=== PATIENT | male | born 1995 | race American Indian/Alaskan Native ===

== ENCOUNTER 2022-02-05 19:23 | Emergency (ER) | payer SELFPAY ==
[2022-02-05] MEDS ORDERED: methylPREDNISolone Sod Succinate 125 MG/2 ML INJ IV ONE (19:59)
[2022-02-05] MEDS ORDERED: FAMOTIDINE 20 MG/2 ML INJ IV ONE (19:59)
[2022-02-05] MEDS ORDERED: diphenhydrAMINE 50 MG/ML VIAL IV ONE ×2 (20:00→20:51)
--- NOTE | 2022-02-05 20:00 | Emergency Department Report ---
HPI - General Chief Complaint: Allergic Reaction ED Review of Systems ROS: Stated complaint: CHEST PAIN/ HIVES Other details as noted in HPI Physical Exam - Physical Exam Vital Signs: Vital Signs 02/05/22 19:27 Temperature 98.7 F Pulse Rate 118 H Respiratory 14 Rate Blood Pressure 152/100 O2 Sat by Pulse 95 Oximetry ED Course Vital Signs 02/05/22 19:27 Temperature 98.7 F Pulse Rate 118 H Respiratory 14 Rate Blood Pressure 152/100 O2 Sat by Pulse 95 Oximetry Critical care attestation.: If time is entered above; I have spent that time in minutes in the direct care of this critically ill patient, excluding procedure time. ED Disposition Condition: Stable
[2022-02-05] MEDS ORDERED: METOCLOPRAMIDE 10 MG/2 ML INJ IV ONE (20:51)
[2022-02-05] MEDS ORDERED: ALUM-MAG HYDROXIDE-SIMETHICONE 200-200-20MG/5ML ORAL LIQD 30 ML PO ONE (21:31)
[2022-02-05] MEDS ORDERED: LIDOCAINE VISCOUS 2% 15 ML ORAL LIQD PO ONE (21:31)
[2022-02-05] MEDS ORDERED: SUCRALFATE 1 GM TAB PO ONE (21:32)
--- NOTE | 2022-02-05 21:49 | Emergency Department Report ---
ED Allergic Reaction HPI - General Chief complaint: Allergic Reaction Stated complaint: CHEST PAIN/ HIVES Source: patient Mode of arrival: Ambulatory Limitations: No Limitations - History of Present Illness Initial Comments: Patient is a 26-year-old -Romanian male with a history of chronic GERD who presents to the ED with complaint of acute onset persistent mild epigastric pain with nausea and vomiting, diffuse itchy erythematous maculopapular urticarial rashes for the last 4 hours. Patient states that the symptoms have worsened in the last 2 hours such that with persistent nausea and vomiting and epigastric pain got worse with burning epigastric pain. Patient also states that the itchy erythematous maculopapular rashes have significantly spread all over his body. Patient denies swollen lips or tongue, hoarseness, chest pain or shortness of breath, cough, wheezing, dizziness, syncope, fever, chills, swollen throat or dysphagia, dizziness and syncope. MD Complaint: allergic reaction, hives, other (Nausea and vomiting and mild epigastric pain) -: Sudden, hour(s) (4) Exposure: food Symptoms: rash, itching, nausea, vomiting, abdominal pain (Mild epigastric pain). denies: facial swelling, lip swelling, difficulty swallowing, hoarseness, syncopy, dizziness Severity: moderate Treatment Prior to Arrival: none Previous Allergy History: none - Related Data Previous Rx's Medication Instructions Recorded Last Taken Type Dicyclomine [Bentyl] 20 mg PO Q6H #24 tablet 02/05/22 Unknown Rx Famotidine [Pepcid] 20 mg PO BID #60 tablet 02/05/22 Unknown Rx Ondansetron [Zofran Odt] 4 mg PO Q6HR PRN #20 tab.rapdis 02/05/22 Unknown Rx diphenhydrAMINE [Benadryl CAP] 50 mg PO Q8HR PRN #40 capsule 02/05/22 Unknown Rx methylPREDNISolone [Medrol 4MG 4 mg PO DAILY #21 tab 02/05/22 Unknown Rx DOSEPAK (21 tabs)] Allergies Allergy/AdvReac Type Severity Reaction Status Date / Time No Known Allergies Allergy Verified 02/05/22 19:44 ED Review of Systems ROS: Stated complaint: CHEST PAIN/ HIVES Other details as noted in HPI Constitutional: denies: chills, fever Eyes: denies: eye pain, eye discharge, vision change ENT: denies: ear pain, throat pain Respiratory: denies: cough, shortness of breath, wheezing Cardiovascular: denies: chest pain, palpitations Endocrine: no symptoms reported Gastrointestinal: abdominal pain (Mild epigastric pain), nausea, vomiting. denies: diarrhea Genitourinary: denies: urgency, dysuria Musculoskeletal: denies: back pain, joint swelling, arthralgia Skin: rash (Diffuse itchy mild erythematous urticarial rashes), change in color, pruritus. denies: lesions Neurological: denies: headache, weakness, paresthesias Psychiatric: denies: anxiety, depression Hematological/Lymphatic: denies: easy bleeding, easy bruising ED Past Medical Hx - Past Medical History Previous Medical History?: Yes Hx GERD: Yes - Surgical History Past Surgical History?: No - Medications Home Medications: Home Medications Medication Instructions Recorded Confirmed Last Taken Type Dicyclomine [Bentyl] 20 mg PO Q6H #24 tablet 02/05/22 Unknown Rx Famotidine [Pepcid] 20 mg PO BID #60 tablet 02/05/22 Unknown Rx Ondansetron [Zofran Odt] 4 mg PO Q6HR PRN #20 tab.rapdis 02/05/22 Unknown Rx diphenhydrAMINE [Benadryl CAP] 50 mg PO Q8HR PRN #40 capsule 02/05/22 Unknown Rx methylPREDNISolone [Medrol 4MG 4 mg PO DAILY #21 tab 02/05/22 Unknown Rx DOSEPAK (21 tabs)] ED Physical Exam - General Limitations: No Limitations General appearance: alert, in no apparent distress - Head Head exam: Present: atraumatic, normocephalic, normal inspection - Eye Eye exam: Present: normal appearance, PERRL, EOMI Pupils: Present: normal accommodation - ENT ENT exam: Present: normal exam, normal orophraynx, mucous membranes moist, TM's normal bilaterally, normal external ear exam - Neck Neck exam: Present: normal inspection, full ROM. Absent: tenderness - Respiratory Respiratory exam: Present: normal lung sounds bilaterally. Absent: respiratory distress, wheezes, rhonchi, stridor, chest wall tenderness, accessory muscle use - Cardiovascular Cardiovascular Exam: Present: normal rhythm, tachycardia, normal heart sounds. Absent: systolic murmur, diastolic murmur, rubs, gallop - GI/Abdominal GI/Abdominal exam: Present: soft, normal bowel sounds. Absent: tenderness, guarding, rebound, hyperactive bowel sounds, hypoactive bowel sounds, organomegaly - Extremities Exam Extremities exam: Present: normal inspection, full ROM, normal capillary refill - Back Exam Back exam: Present: normal inspection, full ROM. Absent: tenderness, CVA tenderness (R), CVA tenderness (L), muscle spasm, paraspinal tenderness, vertebral tenderness - Neurological Exam Neurological exam: Present: alert, oriented X3, CN II-XII intact, normal gait, reflexes normal - Psychiatric Psychiatric exam: Present: normal affect, normal mood - Skin Skin exam: Present: warm, dry, intact, rash (Mild erythematous maculopapular urticarial rashes diffusely), erythema, urticaria ED Course Vital Signs 02/05/22 02/05/22 19:27 20:28 Temperature 98.7 F Pulse Rate 118 H Respiratory 14 Rate Blood Pressure 152/100 O2 Sat by Pulse 95 96 Oximetry ED Medical Decision Making - Medical Decision Making This is a 26-year-old -Romanian male with a history of chronic GERD who presents to the ED with complaint of acute onset persistent mild epigastric pain with nausea and vomiting, diffuse itchy erythematous maculopapular urticarial ra shes for the last 4 hours. Patient states that the symptoms have worsened in the last 2 hours such that with persistent nausea and vomiting and epigastric pain got worse with burning epigastric pain. Patient also states that the itchy erythematous maculopapular rashes have significantly spread all over his body. In the ED, patient is alert and oriented x3 and is not in any distress. Patient is however tachycardic and afebrile in triage. Patient was treated for acute allergic reaction with Solu-Medrol 125 mg IV, Benadryl 50 mg IV and Pepcid 20 mg IV. In addition patient also received antiemetics Reglan 10 mg IV and GI cocktail and Carafate 1 g p.o. x1. On reevaluation, patient felt better, the itching and hives improved significantly and nausea and vomiting resolved. Patient was discharged home on medications and advised to follow-up with his primary care physician in 3 to 5 days for reevaluation or return to the ED immediately if symptoms get worse. - Differential Diagnosis Acute allergic reaction; acute urticaria; dehydration; food allergy; GERD Critical care attestation.: If time is entered above; I have spent that time in minutes in the direct care of this critically ill patient, excluding procedure time. ED Disposition Clinical Impression: Acute urticaria, Itching with irritation, Nausea and vomiting in adult GERD (gastroesophageal reflux disease) Qualifiers: Esophagitis presence: esophagitis presence not specified Qualified Code(s): K21.9 - Gastro-esophageal reflux disease without esophagitis Acute allergic reaction Qualifiers: Encounter type: initial encounter Qualified Code(s): T78.40XA - Allergy, unspecified, initial encounter Disposition: HOME / SELF CARE / HOMELESS Is pt being admited?: No Does the pt Need Aspirin: No Condition: Stable Instructions: Allergies, Adult, [id number], Food Choices for Gastroesophageal Reflux Disease, Adult, Heartburn, [id number], Nausea and Vomiting, Adult, [id number], Rash, Adult, Vwnq-bc-[id number], Gastroesophageal Reflux Disease, Adult, [id number] Additional Instructions: Take medication with food, drink plenty of fluids and follow-up with your primary care physician in 3 to 5 days for reevaluation. Return to the ED immediately if symptoms get worse. Prescriptions: diphenhydrAMINE [Benadryl CAP] 50 mg PO Q8HR PRN #40 capsule PRN Reason: Itching Dicyclomine [Bentyl] 20 mg PO Q6H #24 tablet methylPREDNISolone [Medrol 4MG DOSEPAK (21 tabs)] 4 mg PO DAILY #21 tab Famotidine [Pepcid] 20 mg PO BID #60 tablet Ondansetron [Zofran Odt] 4 mg PO Q6HR PRN #20 tab.rapdis PRN Reason: Nausea Referrals: [facility] [Provider Group] - 3-5 Days Time of Disposition: 21:51 Print Language: JAPANESE
[2022-02-05 22:10] VITALS: BP 126/81
--- NOTE | 2022-02-06 09:47 | Electrocardiograph Report ---
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
== END 2022-02-05 22:17 | disposition home or self-care (01) ==
LOC: ED 19:23
DX: L50.9 Urticaria, unspecified (principal); K21.9 Gastro-esophageal reflux disease without esophagitis; Z79.899 Other long term (current) drug therapy
CPT/HCPCS: 93005; 96374; 96375; 96376; 99283; J1200; J2765; J2930; J3490

== ENCOUNTER 2022-03-13 03:06 | Emergency (ER) | payer SELFPAY ==
[2022-03-13] MEDS ORDERED: FAMOTIDINE 20 MG/2 ML INJ IV ONE (03:20)
[2022-03-13] MEDS ORDERED: methylPREDNISolone Sod Succinate 125 MG/2 ML INJ IV ONE (03:20)
[2022-03-13] MEDS ORDERED: diphenhydrAMINE 50 MG/ML VIAL IV ONE (03:20)
--- NOTE | 2022-03-13 03:21 | Event Note ---
Date: 03/13/22 Medical screening examination note: 26-year-old gentleman with history of GERD and urticaria, presenting to the emergency room today with a complaint of urticaria after taking aspirin. He is awake and alert, protecting airway, and he is not stridulous. He is found to have diffuse welts and urticaria. Place patient on cardiac catheterization technician. Start Pepcid, Benadryl, and steroids. Patient does report association between GERD/reflux and urticaria, so we will medicate empirically with Protonix. Detailed history and physical to be performed by oncoming provider Vital Signs 03/13/22 03/13/22 03/13/22 03:11 03:28 03:30 Temperature 98.6 F Pulse Rate 109 H 106 H Respiratory 18 16 15 Rate Blood Pressure 156/99 159/97 Blood Pressure [Right] O2 Sat by Pulse 96 96 95 Oximetry 03/13/22 03/13/22 03/13/22 03:44 03:45 03:54 Temperature 98.6 F Pulse Rate 88 Respiratory 12 16 Rate Blood Pressure Blood Pressure 159/97 128/83 [Right] O2 Sat by Pulse 100 100 Oximetry
[2022-03-13] MEDS ORDERED: PANTOPRAZOLE 40 MG INJ IV ONE (04:02)
[2022-03-13] MEDS ORDERED: ONDANSETRON 4 MG/2 ML INJ IV ONE (04:38)
[2022-03-13] MEDS ORDERED: SUCRALFATE 1 GM/10 ML ORAL LIQD PO ONE (05:38)
[2022-03-13] MEDS ORDERED: ALUM-MAG HYDROXIDE-SIMETHICONE 200-200-20MG/5ML ORAL LIQD 30 ML PO ONE (06:30)
[2022-03-13] MEDS ORDERED: LIDOCAINE VISCOUS 2% 15 ML ORAL LIQD PO ONE (06:30)
--- NOTE | 2022-03-13 06:51 | Emergency Department Report ---
ED Allergic Reaction HPI - General Chief complaint: Allergic Reaction Stated complaint: ALLERGIC REACTION Time Seen by Provider: 03/13/22 06:11 Source: patient, old records reviewed Mode of arrival: Ambulatory Limitations: No Limitations - History of Present Illness Initial Comments: 26-year-old male with history of kidney stones and GERD presents to the hospital complaining of allergic reaction and GERD symptoms. Patient took aspirin approximately 2 AM for headache. Within 20 minutes he began feeling generalized pruritus with associated rash. He complained of mild throat tightness. Patient took Benadryl 50 mg prior to ED arrival. Patient was screened by previous provider and received additional Benadryl, Pepcid, Solu-Medrol, Protonix, and Carafate. Patient reports improvement and resolution of pruritus and rash with persistent reflux symptoms. Patient was also here 1 month ago for acute urticaria with unclear cause, nausea, vomiting, and GERD - Related Data Previous Rx's Medication Instructions Recorded Last Taken Type Dicyclomine [Bentyl] 20 mg PO Q6H #24 tablet 02/05/22 Unknown Rx Ondansetron [Zofran Odt] 4 mg PO Q6HR PRN #20 tab.rapdis 02/05/22 Unknown Rx Esomeprazole Magnesium [Nexium 20 mg PO DAILY #30 tab 03/13/22 Unknown Rx 24Hr] Famotidine [Pepcid] 20 mg PO BID #60 tablet 03/13/22 Unknown Rx Mag Hydrox/Aluminum Hyd/Simeth 20 ml PO QID PRN #1 bottle 03/13/22 Unknown Rx [Maalox Advanced Suspension] diphenhydrAMINE [Benadryl CAP] 50 mg PO Q8HR PRN #40 capsule 03/13/22 Unknown Rx methylPREDNISolone [Medrol 4MG 4 mg PO DAILY #21 tab 03/13/22 Unknown Rx DOSEPAK (21 tabs)] Allergies Allergy/AdvReac Type Severity Reaction Status Date / Time aspirin Allergy Hives Verified 03/13/22 06:50 ED Review of Systems ROS: Stated complaint: ALLERGIC REACTION Other details as noted in HPI Comment: All other systems reviewed and negative ED Past Medical Hx - Past Medical History Previous Medical History?: No Hx GERD: Yes Hx Kidney Stones: Yes - Surgical History Past Surgical History?: Yes Additional Surgical History: SKIN GRAFTS, KIDNEY STONE REMOVAL, BACK SURGERY - Social History Smoking Status: Current Every Day Smoker Substance Use Type: Alcohol, Marijuana - Medications Home Medications: Home Medications Medication Instructions Recorded Confirmed Last Taken Type Dicyclomine [Bentyl] 20 mg PO Q6H #24 tablet 02/05/22 Unknown Rx Ondansetron [Zofran Odt] 4 mg PO Q6HR PRN #20 tab.rapdis 02/05/22 Unknown Rx Esomeprazole Magnesium [Nexium 20 mg PO DAILY #30 tab 03/13/22 Unknown Rx 24Hr] Famotidine [Pepcid] 20 mg PO BID #60 tablet 03/13/22 Unknown Rx Mag Hydrox/Aluminum Hyd/Simeth 20 ml PO QID PRN #1 bottle 03/13/22 Unknown Rx [Maalox Advanced Suspension] diphenhydrAMINE [Benadryl CAP] 50 mg PO Q8HR PRN #40 capsule 03/13/22 Unknown Rx methylPREDNISolone [Medrol 4MG 4 mg PO DAILY #21 tab 03/13/22 Unknown Rx DOSEPAK (21 tabs)] ED Physical Exam - General Limitations: No Limitations - Other Other exam information: General: No acute distress Head: Atraumatic Eyes: normal appearance ENT: Moist mucous membranes, no posterior airway swelling, stridor, no respiratory Neck: Normal appearance, no midline tenderness Chest: Clear to auscultation bilaterally CV: Regular rate and rhythm Abdomen: Soft, normal bowel sounds, nontender, nondistended, no rebound or guarding Back: Normal inspection Extremity: Normal inspection, full range of motion Neuro: Alert O x 3, no facial asymmetry, speech clear, no gross motor sensory deficit Psych: Appropriate behavior Skin: No rash ED Course Vital Signs 03/13/22 03/13/22 03/13/22 03:11 03:28 03:30 Temperature 98.6 F Pulse Rate 109 H 106 H Respiratory 18 16 15 Rate Blood Pressure 156/99 159/97 Blood Pressure [Right] O2 Sat by Pulse 96 96 95 Oximetry 03/13/22 03/13/22 03/13/22 03:44 03:45 03:46 Temperature 98.6 F Pulse Rate 88 97 H Respiratory 12 16 18 Rate Blood Pressure 159/97 Blood Pressure 159/97 [Right] O2 Sat by Pulse 100 100 99 Oximetry 03/13/22 03/13/22 03/13/22 03:54 04:00 04:16 Temperature Pulse Rate 89 132 H Respiratory 18 22 Rate Blood Pressure 128/83 128/83 Blood Pressure 128/83 [Right] O2 Sat by Pulse 99 99 Oximetry 03/13/22 03/13/22 03/13/22 04:30 04:46 05:00 Temperature Pulse Rate 106 H 99 H 90 Respiratory 12 15 17 Rate Blood Pressure 128/83 128/83 147/95 Blood Pressure [Right] O2 Sat by Pulse 99 99 98 Oximetry 03/13/22 03/13/22 03/13/22 05:16 05:30 05:46 Temperature Pulse Rate 89 82 94 H Respiratory 18 13 19 Rate Blood Pressure 147/95 147/95 147/95 Blood Pressure [Right] O2 Sat by Pulse 98 98 100 Oximetry 03/13/22 03/13/22 03/13/22 06:00 06:16 06:30 Temperature Pulse Rate 90 68 72 Respiratory 19 15 15 Rate Blood Pressure 149/95 149/95 149/95 Blood Pressure [Right] O2 Sat by Pulse 98 97 96 Oximetry ED Medical Decision Making - Medical Decision Making 26-year-old male presents to the hospital with allergic reaction after aspirin and persistent GERD symptoms. Allergic reactions resolved with medications provided in the ED. Patient provided medications for GERD. Aspirin added to allergy list Critical Care Time: No Critical care attestation.: If time is entered above; I have spent that time in minutes in the direct care of this critically ill patient, excluding procedure time. ED Disposition Clinical Impression: Acute allergic reaction, GERD (gastroesophageal reflux disease) Disposition: 01 HOME / SELF CARE / HOMELESS Is pt being admited?: No Does the pt Need Aspirin: No Condition: Stable Instructions: Heartburn, [id number], Allergies, Adult, [id number] Additional Instructions: take the medication as prescribed. Follow-up with your doctor or doctor/clinic provided. Return if symptoms worsen as indicated by your discharge instructions. Do not take aspirin. Please inform future doctors and providers that you are allergic to aspirin and the medication causes you to have hives Prescriptions: diphenhydrAMINE [Benadryl CAP] 50 mg PO Q8HR PRN #40 capsule PRN Reason: Itching Mag Hydrox/Aluminum Hyd/Simeth [Maalox Advanced Suspension] 20 ml PO QID PRN #1 bottle PRN Reason: Indigestion methylPREDNISolone [Medrol 4MG DOSEPAK (21 tabs)] 4 mg PO DAILY #21 tab Esomeprazole Magnesium [Nexium 24Hr] 20 mg PO DAILY #30 tab Famotidine [Pepcid] 20 mg PO BID #60 tablet Referrals: TANIA NYE MD [Primary Care Provider] - 3-5 Days Time of Disposition: 07:39
[2022-03-13 09:22] VITALS: BP 121/78
--- NOTE | 2022-03-14 21:30 | Electrocardiograph Report ---
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
== END 2022-03-13 09:22 | disposition home or self-care (01) ==
LOC: ED 03:06
DX: T78.40XA Allergy, unspecified, initial encounter (principal); K21.9 Gastro-esophageal reflux disease without esophagitis; N20.0 Calculus of kidney; F17.200 Nicotine dependence, unspecified, uncomplicated; Z91.09 Other allergy status, other than to drugs and biological substances; Z79.899 Other long term (current) drug therapy; X58.XXXA Exposure to other specified factors, initial encounter
CPT/HCPCS: 93005; 96374; 96375; 99283; C9113; J1200; J2405; J2930; J3490